=== PATIENT | female | born 1960 | race African-American/Black ===

== ENCOUNTER 2020-05-25 09:30 | Inpatient (IN) | payer OTHER ==
[~2020-05-25] VITALS: Ht 152.4 cm; Wt 109.9 kg
[2020-05-25] MEDS ORDERED: ASPIRIN 81MG TABLET PO ONE (10:00)
[2020-05-25 11:17] LABS: BASOPHILS % 0.6 % (0.0-2.0); EOSINOPHILS % 0.9 % (0.0-5.0); HEMATOCRIT. 38.8 % (36.0-48.0); HEMOGLOBIN. 12.3 g/dL (12.0-16.0); LYMPHOCYTES % 36.6 % (20.0-50.0); MEAN CORPUSCULAR VOLUME 85.2 fL (81.0-99.0); MEAN PLATELET VOLUME 8.4 fl (7.4-10.4); MONOCYTES % 5.3 % (2.0-8.0); NEUTROPHILS % 56.6 % (40.0-76.0); PLATELET 242 x1000/uL (130-400); RED BLOOD CELL COUNT 4.55 mill/uL (4.2-5.4); RED CELL DISTRIBUTION WIDTH 13.6 % (11.6-14.6)
[2020-05-25 11:21] LABS: CHLORIDE 103 mEq/L (98-107)
[2020-05-25] MEDS ORDERED: IOHEXOL-350 100 ML BOTTLE ONE (13:48)
[2020-05-25] MEDS ORDERED: DILTIAZEM HCL 125 MG in DEXT 5% WATER 100 ML IV SCH ×2 (14:00→14:15)
[2020-05-25] MEDS ORDERED: DILTIAZEM HCL 5MG/ML 5ML VIAL IV NR (14:00)
[2020-05-25] MEDS ORDERED: HEPARIN 25,000 UNITS PREMIX 250 ML IV PRN (14:00)
[2020-05-25] MEDS ORDERED: HEPARIN 5000 UNITS/ML VIAL IV PRN ×2 (14:00)
[2020-05-25] MEDS ORDERED: HEPARIN 5000 UNITS/ML VIAL IV NR (15:00)
[2020-05-25] MEDS ORDERED: HEPARIN 25,000 UNITS PREMIX 250 ML IV SCH (15:00)
[2020-05-25] MEDS ORDERED: ACETAMINOPHEN 325MG TABLET PO PRN (15:30)
[2020-05-25] MEDS ORDERED: HEPARIN BOLUS PRN aPTT <30 IV (16:00)
[2020-05-25] MEDS ORDERED: HEPARIN BOLUS PRN aPTT 30-44 IV (16:00)
[2020-05-25] MEDS: ENOXAPARIN 120MG/0.8ML SYR SUBCUT SCH (16:15)
[2020-05-25] MEDS ORDERED: CLONIDINE 0.1MG TABLET PO PRN (18:45)
[2020-05-25 18:58] LABS: CLARITY URINE CLEAR (CLEAR); COLOR URINE YELLOW (YELLOW); KETONES URINE NEGATIVE (NEGATIVE); LEUKOCYTE ESTERASE URINE NEGATIVE (NEGATIVE); NITRITE URINE NEGATIVE (NEGATIVE); OCCULT BLOOD URINE NEGATIVE (NEGATIVE); PROTEIN URINE NEGATIVE (NEGATIVE)
[2020-05-25 19:13] LABS: *AMPHETAMINES SCREEN URINE NEGATIVE (NEGATIVE); *BARBITURATES SCREEN URINE NEGATIVE (NEGATIVE); *BENZODIAZEPINES SCREEN URINE NEGATIVE (NEGATIVE); *COCAINE SCREEN URINE NEGATIVE (NEGATIVE)
[2020-05-25 19:14] LABS: CANNABINOID URINE SCREEN NEGATIVE (NEGATIVE); METHADONE URINE SCREEN NEGATIVE (NEGATIVE); OPIATES URINE SCREEN NEGATIVE (NEGATIVE); PHENCYCLIDINE URINE SCREEN NEGATIVE (NEGATIVE)
[2020-05-25] MEDS: LOSARTAN POTASSIUM 25 MG TABLET PO SCH ×2 (23:40→23:49)
[2020-05-25] MEDS: DILTIAZEM HCL 30MG TABLET PO SCH (23:41)
[2020-05-26] VITALS (21 sets, daily range): BP systolic 119–172; BP diastolic 44–124
[2020-05-26] MEDS: ONDANSETRON HCL 4MG/2ML INJ IV PRN (02:14)
[2020-05-26] MEDS ORDERED: ATOR-2 MT (02:38)
[2020-05-26] MEDS ORDERED: LISI-648 MT (02:41)
[2020-05-26] MEDS ORDERED: METF-873 MT (02:41)
[2020-05-26] MEDS: DILTIAZEM HCL 30MG TABLET PO SCH (05:33)
[2020-05-26] MEDS: ENOXAPARIN 120MG/0.8ML SYR SUBCUT SCH ×2 (05:33→17:02)
[2020-05-26 05:46] LABS: BASOPHILS % 0.6 % (0.0-2.0); EOSINOPHILS % 1.4 % (0.0-5.0); HEMATOCRIT. 36.3 % (36.0-48.0); HEMOGLOBIN. 11.6 g/dL (12.0-16.0); LYMPHOCYTES % 34.9 % (20.0-50.0); MEAN CORPUSCULAR HEMOGLOBIN 27.3 pg (28.0-32.0); MEAN CORPUSCULAR VOLUME 85.8 fL (81.0-99.0); MEAN PLATELET VOLUME 9.1 fl (7.4-10.4); MONOCYTES % 7.9 % (2.0-8.0); NEUTROPHILS % 55.2 % (40.0-76.0); PLATELET 225 x1000/uL (130-400); RED BLOOD CELL COUNT 4.23 mill/uL (4.2-5.4); RED CELL DISTRIBUTION WIDTH 13.7 % (11.6-14.6)
[2020-05-26 05:50] LABS: CHLORIDE 105 mEq/L (98-107)
[2020-05-26 05:58] LABS: LDL CHOLESTEROL 65 mg/dL (5-100)
[2020-05-26 06:00] LABS: CREATINE KINASE 78 IU/L (26-192)
[2020-05-26 06:02] LABS: HDL CHOLESTEROL 36 mg/dL (40-59)
[2020-05-26 06:08] LABS: CREATINE KINASE MB FRACTION 1.5 ng/mL (0.5-3.6)
[2020-05-26] MEDS ORDERED: PNEUMOCOCCAL 23-VAL P-SAC VAC 0.5 ML IM ONE (08:00)
[2020-05-26] MEDS ORDERED: INFLUENZA VACCINE 05/PF 0.5 ML VIAL IM ONE (10:00)
[2020-05-26 10:13] LABS: INR 1.1; PROTHROMBIN TIME 12.1 sec (9.6-11.0)
[2020-05-26] MEDS ORDERED: DILTIAZEM HCL 30MG TABLET PO NR (11:00)
[2020-05-26] MEDS ORDERED: CLONIDINE 0.1MG TABLET PO PRN (13:45)
[2020-05-26] MEDS: DILTIAZEM HCL 120MG CAPSULE CD 24HR PO SCH (17:02)
[2020-05-27] VITALS: BP 133/91
[2020-05-27 04:00] VITALS: BP 132/95
[2020-05-27] MEDS: ENOXAPARIN 120MG/0.8ML SYR SUBCUT SCH ×2 (06:37→18:14)
[2020-05-27 08:00] VITALS: BP 151/98
[2020-05-27] MEDS: DILTIAZEM HCL 120MG CAPSULE CD 24HR PO SCH ×2 (09:27→21:30)
[2020-05-27 12:00] VITALS: BP 120/90
[2020-05-27] MEDS ORDERED: REGADENOSON 0.4 MG/5 ML IV NR (14:45)
[2020-05-27] MEDS ORDERED: POTASSIUM CHLORIDE 20MEQ TABLET SR PO NR (14:45)
[2020-05-27 16:00] VITALS: BP 121/90
[2020-05-27 20:00] VITALS: BP 123/65
[2020-05-27] MEDS: ONDANSETRON HCL 4MG/2ML INJ IV PRN (21:31)
[2020-05-28] VITALS: BP 115/78
[2020-05-28 04:00] VITALS: BP 113/72
[2020-05-28 06:56] LABS: BASOPHILS % 0.7 % (0.0-2.0); EOSINOPHILS % 0.9 % (0.0-5.0); HEMATOCRIT. 38.5 % (36.0-48.0); HEMOGLOBIN. 12.3 g/dL (12.0-16.0); LYMPHOCYTES % 37.9 % (20.0-50.0); MEAN CORPUSCULAR HEMOGLOBIN 27.3 pg (28.0-32.0); MEAN CORPUSCULAR VOLUME 85.5 fL (81.0-99.0); MEAN PLATELET VOLUME 9.6 fl (7.4-10.4); MONOCYTES % 5.3 % (2.0-8.0); NEUTROPHILS % 55.2 % (40.0-76.0); PLATELET 240 x1000/uL (130-400); RED CELL DISTRIBUTION WIDTH 13.8 % (11.6-14.6)
[2020-05-28 07:41] LABS: CHLORIDE 104 mEq/L (98-107)
[2020-05-28] MEDS: ENOXAPARIN 120MG/0.8ML SYR SUBCUT SCH ×2 (09:04→18:18)
[2020-05-28] MEDS: DILTIAZEM HCL 120MG CAPSULE CD 24HR PO SCH ×2 (09:05→23:00)
[2020-05-28 12:00] VITALS: BP 155/88
[2020-05-28] MEDS ORDERED: REGADENOSON 0.4 MG/5 ML IV NR (14:15)
[2020-05-28 16:00] VITALS: BP 130/67
[2020-05-28 20:00] VITALS: BP 133/67
[2020-05-28] MEDS: ONDANSETRON HCL 4MG/2ML INJ IV PRN (23:05)
[2020-05-29] VITALS: BP 124/87
[2020-05-29 04:00] VITALS: BP 123/73
[2020-05-29] MEDS: ENOXAPARIN 120MG/0.8ML SYR SUBCUT SCH (07:52)
[2020-05-29 08:00] VITALS: BP 146/87
[2020-05-29] MEDS ORDERED: REGADENOSON 0.4 MG/5 ML IV ONE (08:39)
[2020-05-29] MEDS: DILTIAZEM HCL 120MG CAPSULE CD 24HR PO SCH (09:47)
[2020-05-29 13:20] VITALS: BP 157/82
[2020-05-29] MEDS ORDERED: RIVAROXABAN 10 MG TABLET PO SCH (17:00)
== END 2020-05-29 13:50 | disposition home or self-care (01) | DRG 309 ==
LOC: ER 09:30 → CVICU 14:18 → CANRESERV 17:37 → ENRESERV 17:37 → 5WST 05-26 14:54
PROVIDERS: ADMIT Internal Medicine; ATTEND Internal Medicine
DX: I48.91 Unspecified atrial fibrillation (principal); Z68.42 Body mass index [BMI] 45.0-49.9, adult; R07.89 Other chest pain; I48.92 Unspecified atrial flutter; E66.9 Obesity, unspecified; E11.9 Type 2 diabetes mellitus without complications; E78.00 Pure hypercholesterolemia, unspecified; E78.5 Hyperlipidemia, unspecified; I44.1 Atrioventricular block, second degree; R91.1 Solitary pulmonary nodule; Z20.822 Contact with and (suspected) exposure to COVID-19; I11.9 Hypertensive heart disease without heart failure; R79.89 Other specified abnormal findings of blood chemistry; Z95.2 Presence of prosthetic heart valve; Z71.3 Dietary counseling and surveillance
CPT/HCPCS: 36415; 71045; 71275; 78452; 80048; 80053; 80061; 80305; 81003; 82550; 82553; 83036; 83735; 83880; 84443; 84484; 85025; 85379; 87426; 90686; 90732; 93005; 93017; 93306; 93970; 99291; A9500; C1893; J1644; J1650; J2405; J2785; J3490; J7060; Q9967